=== PATIENT | female | born 1940 | race Caucasian/White ===

== ENCOUNTER → 2020-03-29 | Outpatient (CLI) | payer MEDICARE, OTHER ==
[~2020-03-29] MED LIST: ACYC800 PO; GABA100 PO; OXYC5 PO
== END ==
LOC: LAB SHORT 10:27 → LAB 10:27
DX: Z48.02 Encounter for removal of sutures (principal); L08.9 Local infection of the skin and subcutaneous tissue, unspecified
CPT/HCPCS: 87070; 87205

== ENCOUNTER 2020-05-18 00:59 | Day surgery (SDC) | payer MEDICARE, OTHER | END 2020-05-18 23:14 | disposition home or self-care (01) | LOC: WOUND | DX: L97.829 Non-pressure chronic ulcer of other part of left lower leg with unspecified severity (principal); I10 Essential (primary) hypertension; Z88.2 Allergy status to sulfonamides; Z88.1 Allergy status to other antibiotic agents; Z87.891 Personal history of nicotine dependence; Z79.899 Other long term (current) drug therapy | CPT/HCPCS: G0463 ==

== ENCOUNTER 2020-05-25 00:38 | Day surgery (SDC) | payer MEDICARE, OTHER | END 2020-05-25 23:34 | disposition home or self-care (01) | LOC: WOUND 00:38 | DX: S81.812D Laceration without foreign body, left lower leg, subsequent encounter (principal); I96 Gangrene, not elsewhere classified; L97.829 Non-pressure chronic ulcer of other part of left lower leg with unspecified severity; I12.0 Hypertensive chronic kidney disease with stage 5 chronic kidney disease or end stage renal disease; N18.6 End stage renal disease; D63.1 Anemia in chronic kidney disease; Z79.899 Other long term (current) drug therapy; W22.8XXD Striking against or struck by other objects, subsequent encounter; Z92.21 Personal history of antineoplastic chemotherapy | CPT/HCPCS: G0463 ==

== ENCOUNTER 2020-12-15 12:12 | Emergency (ER) | payer MEDICARE ==
[~2020-12-15] VITALS: Ht 170.2 cm; Wt 60.8 kg
== END 2020-12-15 15:22 | disposition home or self-care (01) ==
LOC: ER 12:12
DX: S01.81XA Laceration without foreign body of other part of head, initial encounter (principal); W22.8XXA Striking against or struck by other objects, initial encounter
CPT/HCPCS: 12013; 99282-25

== ENCOUNTER → 2021-01-01 | Outpatient (CLI) | payer MEDICARE ==
[~2021-01-01] MED LIST changes: +ATOR10 PO; +ESTRADIOL; +GABA300 PO; +Prednisone10 MG PO
== END ==
LOC: LAB SHORT 16:37 → LAB 16:37
DX: L03.115 Cellulitis of right lower limb (principal)
CPT/HCPCS: 87070; 87075; 87106; 87205

== ENCOUNTER 2021-01-31 09:27 | Emergency (ER) | payer MEDICARE ==
[~2021-01-31] VITALS: Ht 170.2 cm; Wt 60.8 kg
[~2021-01-31 09:27] MED LIST changes: -ATOR10 PO; -ESTRADIOL; -GABA300 PO; -Prednisone10 MG PO
[2021-01-31] MEDS ORDERED: GABA300 PO (09:48)
[2021-01-31] MEDS ORDERED: ATOR10 PO (09:49)
[2021-01-31] MEDS ORDERED: Prednisone10 MG PO (09:49)
[2021-01-31] MEDS ORDERED: ESTRADIOL (09:50)
== END 2021-01-31 11:12 | disposition home or self-care (01) ==
LOC: ER 09:27
DX: M54.42 Lumbago with sciatica, left side (principal); M51.36 Other intervertebral disc degeneration, lumbar region
CPT/HCPCS: 99283

== ENCOUNTER → 2021-02-13 | Outpatient (CLI) | payer MEDICARE ==
[~2021-02-13] MED LIST changes: +ATOR10 PO; +ESTRADIOL; +GABA300 PO; +Prednisone10 MG PO
== END | disposition home or self-care (01) ==
LOC: LAB SHORT 14:54 → LAB 14:54
DX: I87.2 Venous insufficiency (chronic) (peripheral) (principal)
CPT/HCPCS: 87070; 87075; 87205

== ENCOUNTER → 2022-08-22 | Outpatient (CLI) | payer MEDICARE ==
[2022-08-22 17:15] LABS: Albumin, Blood 2.8 g/dL (3.4-5.0); Anion Gap 9 mmol/L (6-16); Blood Urea Nitrogen 36 mg/dL (8-24); CO2, Blood 24 mmol/L (21-32); Calcium, Blood 9.1 mg/dL (8.5-10.1); Chloride, Blood 107 mmol/L (98-108); Creatinine, Blood 1.16 mg/dL (0.40-1.00); Glomerular Filtration Rate 47 (60-); Glucose, Blood 120 mg/dL (70-99); Phosphorus, Blood 3.7 mg/dL (2.5-4.9); Potassium, Blood 4.6 mmol/L (3.5-5.5); Sodium, Blood 140 mmol/L (136-145)
== END | disposition home or self-care (01) ==
LOC: LAB 17:00 → LAB SHORT 17:00
PROVIDERS: Physician Assistant
DX: N39.0 Urinary tract infection, site not specified (principal); R60.0 Localized edema
CPT/HCPCS: 80069; 83880; 87077; 87086; 87186

== ENCOUNTER → 2023-09-22 | Outpatient (CLI) | payer OTHER | END | disposition home or self-care (01) | LOC: LAB 08:02 → LAB SHORT 08:02 | DX: L98.8 Other specified disorders of the skin and subcutaneous tissue (principal) | CPT/HCPCS: 88305 ==